=== PATIENT | female | born 1995 | race Caucasian/White ===

== ENCOUNTER 2018-08-31 11:13 | Inpatient (IN) ==
[2018-08-31 12:07] LABS: Apearance,Urine CLEAR (Clear); Bacteria,Urine Occasional /HPF (Few); Bilirubin,Urine Negative (Negative); Blood, Urine Moderate mg/dL (Negative); Glucose,Urine (UA) Negative (Negative); Ketones,Urine Negative (Negative); Nitrite,Urine Negative (Negative); Protein,Urine Negative; RBC,Urine 1 /HPF (0-4); Squamous Epithelial Cell,Urine Occasional /HPF (0-10); Urine Color Straw (Yellow); Urine Specific Gravity 1.008 (1.001-1.035); Urine Urobilinogen < 2.0 EU/DL (0.2-1.0); WBC,Urine 1 /HPF (0-6)
[2018-08-31] MEDS ORDERED: MEPERIDINE 50 MG/1 ML VIAL IV PRN (13:10)
[2018-08-31] MEDS ORDERED: ONDANSETRON 4 MG/2 ML VIAL IV PRN (13:10)
[2018-08-31] MEDS ORDERED: BUTORPHANOL 2 MG/ML VIAL IV PRN (13:10)
[2018-08-31] MEDS ORDERED: OXYTOCIN/LR 20 UNIT/1,000 ML BAG IV SCH (13:30)
[2018-08-31 13:33] LABS: Basophils # 0.1 10*3/uL (0.0-0.2); Basophils % 0.3 % (0.0-0.8); Eosinophils # 0.1 10*3/uL (0.0-0.87); Eosinophils % 0.5 % (0.00-10.9); Hematocrit 32.2 VOL% (35.7-47.0); Immature Granulocytes % 0.6 %; Immature Granulocytes Absolute 0.13 #; Lymphocytes # 2.8 10*3/uL (1.4-4.0); Mean Corpuscular HGB Conc 34.2 GM/DL (32-36); Mean Corpuscular Hemoglobin 31 PG (27-34); Mean Platelet Volume 10.7 FL (9.6-12.0); Monocytes # 1.2 10*3/uL (0.11-0.8); Monocytes % 5.9 % (1.7-12.7); Neutrophils # 15.9 10*3/uL (1.4-7.4); Neutrophils % 78.7 % (38.7-73.9); Platelet Count 271 T/CUMM (130-400); Red Cell Distribution Width 12.8 % (9.3-17.3); White Blood Count 20.2 T/CUMM (4-12)
[2018-08-31] MEDS: LACTATED RINGERS 1,000 ML IV SCH ×2 (13:37→13:58)
[2018-08-31] MEDS ORDERED: NALOXONE 0.4 MG/ML VIAL IV PRN (13:41)
[2018-08-31] MEDS ORDERED: ePHEDrine 50 MG/ML AMP IV PRN (13:41)
[2018-08-31] MEDS ORDERED: FAMOTIDINE 20 MG/2 ML VIAL IV ONE (13:42)
[2018-08-31] MEDS ORDERED: CITRIC ACID/SODIUM CITRATE 30 ML UDCUP PO ONE (13:43)
[2018-08-31] MEDS ORDERED: miSOPROStol 200 MCG TABLET ONE (13:49)
[2018-08-31] MEDS ORDERED: TRANEXAMIC ACID 1,000 MG/10 ML VIAL ONE (13:49)
[2018-08-31] MEDS ORDERED: fentaNYL 2 MCG/ROPIV 0.2% EPID 100 ML EPIDURAL SCH (14:00)
[2018-08-31] MEDS ORDERED: AMPICILLIN INJ 2,000 MG in SODIUM CHLORIDE 0.9% 100 ML IV ONE (14:03)
[2018-08-31 14:59] LABS: Lymphocytes 10 % (20-55); Polychromasia Slight; Segmented Neutrophils 83 % (50-85); Total Cells Counted 100
[2018-08-31 15:00] LABS: Microcytosis 2+; Stomatocytes Few
[2018-08-31 15:01] LABS: Anisocytosis 1+
[2018-08-31 15:02] LABS: Platelet Estimate Normal
[2018-08-31 16:06] LABS: Apearance,Urine CLEAR (Clear); Bacteria,Urine Occasional /HPF (Few); Bilirubin,Urine Negative (Negative); Blood, Urine Negative (Negative); Glucose,Urine (UA) Negative (Negative); Ketones,Urine 80 mg/dL (Negative); Mucus,Urine Occasional /LPF (Occasional); Nitrite,Urine Negative (Negative); Protein,Urine Negative; RBC,Urine 2 /HPF (0-4); Squamous Epithelial Cell,Urine Occasional /HPF (0-10); Urine Color Yellow (Yellow); Urine Specific Gravity 1.017 (1.001-1.035); Urine Urobilinogen < 2.0 EU/DL (0.2-1.0); WBC,Urine 1 /HPF (0-6)
[2018-08-31] MEDS ORDERED: WITCH HAZEL PADS 100/JAR TOP PRN (19:45)
[2018-08-31] MEDS ORDERED: BENZOCAINE 20%/MENTHOL 0.5% SPRAY 56 GM CAN TOP PRN (19:46)
[2018-09-01] MEDS: IBUPROFEN 800 MG TABLET PO PRN ×2 (03:14→19:34)
[2018-09-01] MEDS: LACTATED RINGERS 1,000 ML IV SCH (03:39)
[2018-09-01 06:05] LABS: Basophils # 0.1 10*3/uL (0.0-0.2); Basophils % 0.4 % (0.0-0.8); Eosinophils # 0.2 10*3/uL (0.0-0.87); Eosinophils % 1.1 % (0.00-10.9); Hematocrit 27.7 VOL% (35.7-47.0); Hemoglobin 9.1 GM/DL (12.0-16.0); Immature Granulocytes % 0.6 %; Immature Granulocytes Absolute 0.09 #; Lymphocytes % 18.2 % (21.3-54.2); Mean Corpuscular HGB Conc 32.9 GM/DL (32-36); Mean Corpuscular Hemoglobin 31 PG (27-34); Mean Corpuscular Volume 93.9 FL (87-102); Mean Platelet Volume 10.7 FL (9.6-12.0); Monocytes # 1.2 10*3/uL (0.11-0.8); Monocytes % 7.1 % (1.7-12.7); Neutrophils # 11.9 10*3/uL (1.4-7.4); Neutrophils % 72.6 % (38.7-73.9); Platelet Count 235 T/CUMM (130-400); Red Blood Count 2.95 MC/CUMM (3.8-5.5); Red Cell Distribution Width 12.8 % (9.3-17.3); White Blood Count 16.3 T/CUMM (4-12)
[2018-09-01 07:46] LABS: HIV Antigen/Antibody Result Nonreactive (Nonreactive); Hepatitis B Surface Ag Quant < 0.10 Index; Hepatitis B Surface Ag Result Negative (Negative); Rubella Antibody IgG 14.5 IU/ML
[2018-09-01] MEDS ORDERED: oxyCODONE/ACETAMINOPHEN 5-325 MG TABLET PO PRN ×2 (19:27→20:10)
[2018-09-01] MEDS ORDERED: LANOLIN 50% CREAM 0.3 OZ TUBE TOP PRN (20:10)
[2018-09-01] MEDS ORDERED: DIPH/TET/ACEL PERT BOOSTER VACCINE 0.5 ML VIAL IM ONE (20:10)
[2018-09-01] MEDS ORDERED: HYDROCORTISONE 2.5% RECTAL CREAM 30 GM TUBE TOP PRN (20:10)
[2018-09-01] MEDS ORDERED: BISACODYL 10 MG SUPP RECTAL PRN (20:10)
[2018-09-01] MEDS ORDERED: RHO(D) IMMUNE GLOBULIN 300 MCG SYRINGE IM ONE (20:10)
[2018-09-01] MEDS ORDERED: ACETAMINOPHEN 325 MG TABLET PO PRN (20:10)
[2018-09-02] MEDS: DOCUSATE SODIUM 100 MG CAPSULE PO SCH ×2 (00:33→08:33)
[2018-09-02 07:36] VITALS: BP 132/71
[2018-09-02] MEDS ORDERED: INFLUENZA VIRUS VACCINE 0.5 ML SYRINGE IM ONE (13:55)
== END 2018-09-02 11:26 | disposition home or self-care (01) | DRG 807 ==
LOC: N.LDOUT 11:13 → N.LD 11:16
PROVIDERS: ADMIT Obstetrics & Gynecology; ATTEND Obstetrics & Gynecology

== ENCOUNTER 2022-01-11 00:11 | Inpatient (IN) ==
[2022-01-11] MEDS ORDERED: MEPERIDINE 50 MG/1 ML VIAL IV PRN (00:54)
[2022-01-11] MEDS ORDERED: ONDANSETRON 4 MG/2 ML VIAL IV PRN ×2 (00:54→04:52)
[2022-01-11] MEDS ORDERED: BUTORPHANOL 2 MG/ML VIAL IV PRN (00:54)
[2022-01-11] MEDS ORDERED: LACTATED RINGERS 500 ML IV PRN (00:54)
[2022-01-11] MEDS ORDERED: CITRIC ACID/SODIUM CITRATE 30 ML UDCUP PO ONE (00:56)
[2022-01-11] MEDS ORDERED: ePHEDrine 50 MG/ML VIAL IV PRN (00:56)
[2022-01-11] MEDS ORDERED: FAMOTIDINE 20 MG/2 ML VIAL IV ONE (00:56)
[2022-01-11] MEDS ORDERED: diphenhydrAMINE 50 MG/1 ML VIAL IV PRN ×2 (00:56)
[2022-01-11] MEDS ORDERED: hydrOXYzine HCL 25 MG/1 ML VIAL IM PRN (00:56)
[2022-01-11] MEDS ORDERED: PROMETHAZINE 25 MG/1 ML VIAL IM ONE (00:56)
[2022-01-11] MEDS ORDERED: ONDANSETRON 4 MG/2 ML VIAL IV ONE (00:56)
[2022-01-11] MEDS ORDERED: NALOXONE 0.4 MG/ML VIAL IV PRN (00:56)
[2022-01-11] MEDS ORDERED: fentaNYL 2 MCG/ROPIV 0.2% EPID 100 ML EPIDURAL SCH (01:00)
[2022-01-11 01:22] LABS: Basophils % 0.4 % (0.0-0.8); Eosinophils # 0.2 10*3/uL (0.0-0.87); Eosinophils % 1.9 % (0.00-10.9); Hematocrit 31.2 VOL% (35.7-47.0); Hemoglobin 10.3 GM/DL (12.0-16.0); Immature Granulocytes % 0.6 %; Immature Granulocytes Absolute 0.07 #; Lymphocytes # 2.6 10*3/uL (1.4-4.0); Mean Corpuscular Volume 89.1 FL (87-102); Mean Platelet Volume 11.5 FL (9.6-12.0); Monocytes % 7.8 % (1.7-12.7); Neutrophils % 66.3 % (38.7-73.9); Platelet Count 206 T/CUMM (130-400); Red Cell Distribution Width 13.2 % (9.3-17.3); White Blood Count 11.2 T/CUMM (4-12)
[2022-01-11] MEDS: LACTATED RINGERS 1,000 ML IV SCH ×2 (01:32→01:47)
[2022-01-11 01:48] LABS: Alanine Aminotransferase 18 U/L (13-56); Albumin 2.6 G/DL (3.4-5.0); Alkaline Phosphatase 172 U/L (45-117); Aspartate Amino Transferase 21 U/L (0-37); Bilirubin,Total < 0.39 MG/DL (0.20-1.00); Blood Urea Nitrogen 7 MG/DL (7-18); Carbon Dioxide 23 MMOL/L (21-32); Estimated Glom Filtration Rate 163 ML/MIN; Glucose 86 MG/DL (74-106); Potassium 3.8 MMOL/L (3.5-5.1); Sodium 136 MMOL/L (136-145); Total Protein 7.1 G/DL (6.4-8.2)
[2022-01-11 03:40] LABS: Bacteria,Urine Occasional /HPF (Few); RBC,Urine 1 /HPF (0-4); Squamous Epithelial Cell,Urine Occasional /HPF (0-10)
[2022-01-11] MEDS ORDERED: miSOPROStoL 200 MCG TABLET ONE (03:40)
[2022-01-11] MEDS ORDERED: TRANEXAMIC ACID 1,000 MG/10 ML VIAL ONE (03:40)
[2022-01-11] MEDS ORDERED: SODIUM CHLORIDE 0.9% 0 ML IV ONE (03:40)
[2022-01-11] MEDS ORDERED: OXYTOCIN/LR 20 UNIT/1,000 ML BAG IV ONE ×2 (03:40→04:52)
[2022-01-11] MEDS ORDERED: CARBOPROST TROMETHAMINE 250 MCG/ML AMP IM ONE (03:41)
[2022-01-11] MEDS ORDERED: METHYLERGONOVINE 0.2 MG/1 ML AMP ONE (03:41)
[2022-01-11 03:42] LABS: Bilirubin,Urine Negative (Negative); Blood, Urine Negative (Negative); Glucose,Urine (UA) Negative (Negative); Ketones,Urine Negative (Negative); Nitrite,Urine Negative (Negative); Protein,Urine Negative; Urine Appearance Clear (Clear); Urine Color Yellow (Yellow); Urine Urobilinogen 0.2 EU/DL (<2.0)
[2022-01-11 04:41] LABS: Cord Arterial Blood HCO3 21.5 MMOL/L
[2022-01-11 04:43] LABS: Cord Venous Blood PCO2 41.7 MMHG; Cord Venous Blood PO2 45.1
[2022-01-11] MEDS ORDERED: RHO(D) IMMUNE GLOBULIN 300 MCG SYRINGE IM ONE (04:52)
[2022-01-11] MEDS ORDERED: BENZOCAINE 20%/MENTHOL 0.5% SPRAY 56 GM CAN TOP PRN (04:52)
[2022-01-11] MEDS ORDERED: WITCH HAZEL PADS 100/JAR TOP PRN (04:52)
[2022-01-11] MEDS ORDERED: DIPH/TET/ACEL PERT BOOSTER VACCINE 0.5 ML VIAL IM ONE (04:52)
[2022-01-11] MEDS ORDERED: MEASLES/MUMPS/RUBELLA VACCINE 0.5 ML VIAL SUBCUT ONE (04:52)
[2022-01-11] MEDS ORDERED: oxyCODONE/ACETAMINOPHEN 5-325 MG TABLET PO PRN ×2 (04:52)
[2022-01-11] MEDS ORDERED: HYDROCORTISONE 2.5% RECTAL CREAM 30 GM TUBE TOP PRN (04:52)
[2022-01-11] MEDS ORDERED: LANOLIN 50% CREAM 0.3 OZ TUBE TOP PRN (04:52)
[2022-01-11] MEDS ORDERED: ACETAMINOPHEN 325 MG TABLET PO PRN (04:52)
[2022-01-11] MEDS ORDERED: BISACODYL 10 MG SUPP RECTAL PRN (04:52)
[2022-01-11] MEDS: DOCUSATE SODIUM 100 MG CAPSULE PO SCH ×2 (08:58→21:00)
[2022-01-11] MEDS: IBUPROFEN 800 MG TABLET PO PRN ×2 (09:56→21:01)
[2022-01-12 05:32] LABS: Basophils % 0.4 % (0.0-0.8); Eosinophils # 0.2 10*3/uL (0.0-0.87); Hematocrit 28.4 VOL% (35.7-47.0); Immature Granulocytes % 0.6 %; Immature Granulocytes Absolute 0.06 #; Lymphocytes # 2.3 10*3/uL (1.4-4.0); Lymphocytes % 21.5 % (21.3-54.2); Mean Corpuscular HGB Conc 31.7 GM/DL (32-36); Mean Platelet Volume 11.3 FL (9.6-12.0); Monocytes % 7.4 % (1.7-12.7); Neutrophils % 68.1 % (38.7-73.9); Platelet Count 163 T/CUMM (130-400); Red Blood Count 3.12 MC/CUMM (3.8-5.5); Red Cell Distribution Width 13.5 % (9.3-17.3); White Blood Count 10.9 T/CUMM (4-12)
[2022-01-12 05:58] LABS: Eosinophils 2 % (0-10); Hypochromia 1+; Lymphocytes 13 % (20-55); Microcytosis 1+; Platelet Estimate Adequate; Segmented Neutrophils 82 % (50-85); Total Cells Counted 100
[2022-01-12] MEDS: DOCUSATE SODIUM 100 MG CAPSULE PO SCH ×2 (08:56→21:33)
[2022-01-12] MEDS: IBUPROFEN 800 MG TABLET PO PRN ×2 (09:55→21:32)
[2022-01-13] MEDS: IBUPROFEN 800 MG TABLET PO PRN (07:13)
[2022-01-13 09:23] VITALS: BP 119/59
[2022-01-13] MEDS: DOCUSATE SODIUM 100 MG CAPSULE PO SCH (10:12)
== END 2022-01-13 12:30 | disposition home or self-care (01) | DRG 807 ==
LOC: N.LD 00:11 → N.OB 08:38
PROVIDERS: ADMIT Specialist; ATTEND Specialist